=== PATIENT | female | born 1940 | race Caucasian/White ===

== ENCOUNTER 2016-07-10 06:00 | Day surgery (SDC) | payer MEDICARE, OTHER ==
[~2016-07-10] VITALS: Ht 154.9 cm; Wt 59.9 kg
[~2016-07-10 06:00] MED LIST: ALTACE10 MG PO; CALCIUM 600 +1 EAC3 PO; MULTIPLE VITAMI1 TA1 PO; NORVASC2.5 MG PO; TENEX1 MG PO; TOPROL XL100 MG PO; ULTRAM50 MG PO; ZOCOR40 MG PO
[2016-07-10 06:25] VITALS: BP 156/73; Ht 154.9 cm; Wt 59.9 kg
[2016-07-10 07:18] LABS: HEMATOCRIT 38.1 % (36.0-48.0); HEMOGLOBIN 12.5 g/dL (12-16); MCH 32.6 pg (26.0-34.0); MCHC 32.8 g/dL (31.0-37.0); MCV 99.2 fL (80.0-100.0); MEAN PLATELET VOLUME 9.7 fL (7.4-10.4); RBC 3.84 10x6/uL (4.00-5.40); RDW 12.7 % (11.5-14.5); WBC 9.5 10x3/uL (4.8-10.8)
--- NOTE | 2016-07-10 13:45 | NUR ---
0957 RECEIVED PT FROM PACU, SEE ADMIT NOTE. PT DENIES C/O AT THIS TIME. RR EVEN AND UNLABORED. AT BEDSIDE. CALL LIGHT IN REACH, INSTRUCTED PT TO CALL FOR NEEDS. 1045 PT HAS TOLERATED FULL LIQUID DIET WITH NO C/O NAUSEA. 1130 NO CHANGE IN DRESSING SINCE PT ARRIVAL TO OP. FOOT HAS BEEN ELEVATED ON PILLOW AND ICE PACK IN PLACE. IV DC'D WITH CATH INTACT. ASSISTED PT WITH DRESSING FOR DC TO HOME. POST OP BOOT IN PLACE TO RIGHT FOOT. ASSISTED PT UP TO THE BATHROOM, USING WALKER, PT VOIDED QS. 1200 DC INSTRUCTIONS REVIEWED WITH PT AND WHO VERBALIZE UNDERSTANDING. PT ESCORTED TO PRIVATE AUTO VIA WC BY STAFF WITH DRIVING HER HOME.
== END 2016-07-10 12:00 | disposition home or self-care (01) ==
LOC: D.OPS 06:00 → D.PAN 07:30 → D.OPS 08:30
PROVIDERS: Anesthesiology
DX: M20.41 Other hammer toe(s) (acquired), right foot (principal); I10 Essential (primary) hypertension